=== PATIENT | male | born 1975 | race Caucasian/White ===

== ENCOUNTER 2016-09-09 15:59 | Emergency (ER) | payer OTHER ==
[2016-09-09 16:05] VITALS: BP 130/79; PULSE 70; TEMP 98.3; BMI 26.4
[2016-09-09] MEDS ORDERED: CYCLOBENZAPRINE HCL 10 MG TABLET (FP) PO ONE (16:35)
[2016-09-09] MEDS ORDERED: KETOROLAC TROMETHAMINE 60 MG/2 ML VIAL IM ONE (16:35)
--- NOTE | 2016-09-09 16:40 | PDOC ---
History of Present Illness - General Chief Complaint: Pain Stated Complaint: BACK PAIN Time Seen by Provider: 09/09/16 16:07 History Source: Patient Exam Limitations: No Limitations - History of Present Illness Initial Comments: 09/09/16 16:35 41-year-old male with complaints of low back pain since yesterday. Patient states was fishing and did not do anything exertional and by the evening he had discomfort to the point that he took 600 mg Motrin with minimal affect. Patient has no complaints of sensory changes, saddle anesthesia, incontinence, history of back pain, or difficulty ambulating. Occurred: reports: yesterday Severity: reports: moderate Pain Location: reports: back Method of Injury: Yes: unknown Modifying Factors: improves with: None Associated Symptoms (Fall): denies symptoms Past History - Past Medical History Allergies/Adverse Reactions: Allergies Allergy/AdvReac Type Severity Reaction Status Date / Time No Known Allergies Allergy Verified 09/09/16 16:02 Home Medications: Ambulatory Orders NK [No Known Home Medication] 09/09/16 Other medical history: NONE - Psycho/Social/Smoking Cessation Hx Anxiety: No Suicidal Ideation: No Smoking History: Never smoked Have you smoked in the past 12 months: No Information on smoking cessation initiated: No Hx Alcohol Use: No Drug/Substance Use Hx: No Patient Lives Alone: No Review of Systems - Review of Systems Able to Perform ROS?: Yes Constitutional: No: Symptoms Reported ABD/GI: No: Symptoms Reported : No: Flank Pain Musculoskeletal: Yes: Back Pain, Muscle Pain. No: Joint Pain, Neck Pain Integumentary: No: Bruising Neurological: No: Numbness, Paresthesia, Weakness Hematologic/Lymphatic: No: Symptoms Reported *Physical Exam - Vital Signs Last Vital Signs Temp Pulse Resp BP Pulse Ox 98.3 F 70 18 130/79 100 09/09/16 16:02 09/09/16 16:02 09/09/16 16:02 09/09/16 16:02 09/09/16 16:02 - Physical Exam General Appearance: Yes: Nourished, Appropriately Dressed. No: Apparent Distress Musculoskeletal: negative: CVA Tenderness, Decreased Range of Motion, Muscle Spasm, Vertebral Tenderness (no midline tenderness) Extremity: positive: Normal Range of Motion Integumentary: positive: Normal Color, Warm, Moist Neurologic: positive: Motor Strength 5/5 (ambulatory) Medical Decision Making - Medical Decision Making 09/09/16 16:38 Patient with complaints of back pain since yesterday without identifying trigger. Patient was fishing but denies anything anything heavy. Patient exam had no midline tenderness but did have paraspinous tenderness at L3 -L5 bilaterally. Patient with likely low back strain. Patient ordered for Toradol and Flexeril. Will discharge home with Motrin and Flexeril *DC/Admit/Observation/Transfer Diagnosis at time of Disposition: Strain of lumbar region Qualifiers: Encounter type: initial encounter Qualified Code(s): S39.012A - Strain of muscle, fascia and tendon of lower back, initial encounter - Discharge Dispostion Disposition: HOME Condition at time of disposition: Good - Referrals Referrals: Pham Lyman MD [Primary Care Provider] - - Patient Instructions Printed Discharge Instructions: DI for Low Back Pain Additional Instructions: I recommend applying ice to the affected area for the next 3 days. Please take medication as prescribed. Avoid movements that Trigger discomfort. Follow-up with your PMD as needed. Otherwise return to ED if symptoms worsen
[2016-09-09] MEDS ORDERED: CYCLOBENZAPRINE HCL 10 MG TABLET (FP) ONE (16:41)
[2016-09-09] MEDS ORDERED: KETOROLAC TROMETHAMINE 60 MG/2 ML VIAL ONE (16:41)
== END 2016-09-09 16:50 | disposition home or self-care (01) ==
LOC: JERFT 15:59 → JER 15:59 → JERFT 16:50
PROC: 3E0233Z Introduction of Anti-inflammatory into Muscle, Percutaneous Approach (ICD-10-PCS; principal; 2016-09-09)
DX: S39.012A Strain of muscle, fascia and tendon of lower back, initial encounter (principal); X58.XXXA Exposure to other specified factors, initial encounter; Y93.9 Activity, unspecified; Y92.9 Unspecified place or not applicable
CPT/HCPCS: 96372; 99281-25

== ENCOUNTER 2017-02-20 09:21 | Day surgery (SDC) | payer OTHER ==
[2017-02-19 16:56] VITALS: BMI 25.7
[2017-02-20] MEDS ORDERED: DEXAMETHASONE SOD PHOSPHATE/PF 10 MG/ML SDV ONE (12:52)
[2017-02-20] MEDS ORDERED: ROPIVACAINE HCL 0.5% 30ML VIAL ONE (12:53)
[2017-02-20] MEDS ORDERED: MIDAZOLAM HCL 2 MG/2 ML SINGLE DOSE VIAL ONE ×3 (12:53→13:04)
[2017-02-20] MEDS ORDERED: ONDANSETRON 4 MG/2 ML VIAL ONE ×2 (13:03→15:58)
[2017-02-20] MEDS ORDERED: PROPOFOL 20 ML ONE ×3 (13:03→14:26)
[2017-02-20] MEDS ORDERED: DEXAMETHASONE SOD PHOSPHATE 4 MG/1 ML VIAL ONE (13:03)
[2017-02-20] MEDS: ONDANSETRON 4 MG/2 ML VIAL IVPUSH ONE ×2 (16:00→17:45)
[2017-02-20] MEDS ORDERED: oxyCODONE HCL 5 MG TABLET PO PRN (16:04)
[2017-02-20 19:06] VITALS: BP 132/79; PULSE 86; TEMP 98
--- NOTE | 2017-02-22 08:44 | OP ---
DATE OF OPERATION: 02/20/2017 PREOPERATIVE DIAGNOSES: 1. Right shoulder acromioclavicular joint arthritis. 2. Right shoulder subacromial impingement syndrome. POSTOPERATIVE DIAGNOSES: 1. Right shoulder acromioclavicular joint arthritis. 2. Right shoulder subacromial impingement syndrome. OPERATIVE PROCEDURES: 1. Right shoulder arthroscopic distal clavicle excision. 2. Right shoulder arthroscopic subacromial decompression. JOURNEYMAN MOLDER: LULU Cota SURGEON: Amie Johnson MD ANESTHESIA: Regional. COMPLICATIONS: None. ESTIMATED BLOOD LOSS: Minimal. INDICATIONS FOR PROCEDURE: The patient is a 41-year-old male with the above findings, indicated for operative treatment. The risks, benefits, and alternatives were discussed with the patient at length, and proper informed consent was obtained. DESCRIPTION OF PROCEDURE: After proper identification of the patient and the correct operative site, patient was brought to the operating room, placed supine on the operating table with prominences well padded. Patient was placed in the beach-chair position with all points of contact well padded. An in-line cervical position was maintained throughout the procedure. Right upper extremity was prepped and draped in the usual sterile fashion. Arthroscopy was performed through the posterior, lateral, and anterior portals. Incision was taken sharply through the skin with blunt dissection through the subcutaneous tissues. Blunt entry to the joint was performed in each case. Glenohumeral joint was observed and found to be free of chondral defects. Mild fraying of the labrum was noted and this was debrided with the mechanical shaver. There were no loose bodies. Ligaments were intact. The rotator cuff was clear. The supraspinatus, infraspinatus, and subscapularis were intact. Arthroscope was then introduced into the subacromial space, where a severe bursitis was noted. This was debrided with the mechanical shaver. Anterior-inferior subacromial spur was noted, and this was shaved with an anterior-inferior acromioplasty using an arthroscopic grisel. AC joint was found to be arthritic, and a distal clavicle excision was performed. Shoulder was taken through a range of motion, and there was no impingement of the AC joint anymore. Wounds were irrigated with saline and repaired with 5-0 nylon sutures. Sterile dressings were applied. Sling was placed. The patient was reversed from anesthesia and brought to the recovery room in stable condition. Jung Guajardo, the hotel administrative assistant, was integral throughout the procedure. Procedure could not have been performed without a skilled operative hotel administrative assistant. AMIE JOHNSON M.D. [id number]
== END 2017-02-20 19:01 | disposition home or self-care (01) ==
LOC: FASU 09:21
PROVIDERS: ATTEND Orthopaedic Surgery Hand Surgery
PROC: 0PB94ZZ Excision of Right Clavicle, Percutaneous Endoscopic Approach (ICD-10-PCS; principal; 2017-02-20 14:20)
PROC: 0RNJ4ZZ Release Right Shoulder Joint, Percutaneous Endoscopic Approach (ICD-10-PCS; 2017-02-20 14:20)
DX: M13.811 Other specified arthritis, right shoulder (principal); M75.41 Impingement syndrome of right shoulder
CPT/HCPCS: 94760

== ENCOUNTER 2017-07-28 16:17 | Emergency (ER) | payer OTHER ==
[2017-07-28 16:23] VITALS: BP 115/83; PULSE 77; TEMP 98.3; BMI 28.0
[2017-07-28] MEDS ORDERED: KETOROLAC TROMETHAMINE 60 MG/2 ML VIAL IM ONE (16:46)
[2017-07-28] MEDS ORDERED: DEXAMETHASONE SOD PHOSPHATE 10 MG/1 ML VIAL IM ONE (16:46)
[2017-07-28] MEDS ORDERED: DEXAMETHASONE SOD PHOSPHATE 10 MG/1 ML VIAL ONE (16:50)
[2017-07-28] MEDS ORDERED: KETOROLAC TROMETHAMINE 60 MG/2 ML VIAL ONE (16:50)
--- NOTE | 2017-07-28 16:50 | PDOC ---
History of Present Illness - General History Source: Patient Exam Limitations: No Limitations - History of Present Illness Initial Comments: 07/28/17 16:51 The patient is a 42 year old male with a past medical history of lumbar disc herniation who presents to the ED with 3 weeks of lower back pain. The patient reports intermittent pain to the top of his left sided buttock, radiating down his left leg. He reports taking NSAIDS with no relief of present symptoms. Patient states he sits for long hours at his job and does a lot of heavy lifting. Denies recent trauma. Denies fecal or urinary incontinence. Denies focal numbness/weakness/or tingling. Denies foot drop. Denies nausea, vomiting, or diarrhea. Denies chest pain or shortness of breath. Denies any other symptoms. <Ryanne Castanon - Last Filed: 07/28/17 16:51> <Kyara Rosas - Last Filed: 07/28/17 17:11> - General Chief Complaint: Back Pain Stated Complaint: BACK PAIN Time Seen by Provider: 07/28/17 16:26 Past History <Ryanne Castanon - Last Filed: 07/28/17 16:51> - Past Medical History Anemia: No Asthma: No Cancer: No Cardiac Disorders: No CVA: No COPD: No CHF: No Dementia: No Diabetes: No GI Disorders: No Disorders: No HTN: No Hypercholesterolemia: No Liver Disease: No Seizures: No Thyroid Disease: No - Surgical History Abdominal Surgery: No Appendectomy: Yes Cardiac Surgery: No Cholecystectomy: No Lung Surgery: No Neurologic Surgery: No Orthopedic Surgery: Yes (LUMBAR MICRODISCECTOMY 2007) - Immunization History Immunization Up to Date: Yes - Suicide/Smoking/Psychosocial Hx Smoking History: Never smoked Have you smoked in the past 12 months: No If you are a former smoker, when did you quit?: 10 YEARS AGO Information on smoking cessation initiated: No Hx Alcohol Use: No Drug/Substance Use Hx: No Substance Use Type: None <Kyara Rosas - Last Filed: 07/28/17 17:11> - Past Medical History Allergies/Adverse Reactions: Allergies Allergy/AdvReac Type Severity Reaction Status Date / Time No Known Allergies Allergy Verified 07/28/17 16:20 Home Medications: Ambulatory Orders Cyclobenzaprine HCl [Flexeril 10 mg] 10 mg PO TID PRN 07/28/17 Docusate Sodium [Colace -] 100 mg PO DAILY PRN #30 capsule 07/28/17 Ibuprofen [Motrin -] 600 mg PO QID PRN #28 tablet 07/28/17 Naproxen [Naprosyn -] 500 mg PO BID 07/28/17 Oxycodone HCl/Acetaminophen [Percocet 5-325 mg Tablet] 1 tab PO Q6H PRN #20 tablet MDD 4 07/28/17 Review of Systems - Review of Systems Able to Perform ROS?: Yes Comments:: 07/28/17 16:51 CONSTITUTIONAL: Absent: fever, no chills, no fatigue EYES: Absent: visual changes ENT: Absent: ear pain, no sore throat CARDIOVASCULAR: Absent: chest pain, no palpitations RESPIRATORY: Absent: cough, no SOB GI: Absent: abdominal pain, no nausea, no vomiting, no constipation, no diarrhea GENITOURINARY: Absent: dysuria, no frequency, no hematuria MUSKULOSKELETAL: + back pain Absent: no arthralgia, no myalgia SKIN: Absent: rash NEURO: Absent: headache All Other Systems: Reviewed and Negative <Ryanne Castanon - Last Filed: 07/28/17 16:51> *Physical Exam - Vital Signs Last Vital Signs Temp Pulse Resp BP Pulse Ox 98.3 F 77 17 115/83 100 07/28/17 16:20 07/28/17 16:20 07/28/17 16:20 07/28/17 16:20 07/28/17 16:20 - Physical Exam Comments: 07/28/17 16:52 GENERAL: Well-appearing, well-nourished. No apparent distress. HEENT: Normocephalic, atraumatic. PERRL, EOM intact. CARDIOVASCULAR: Normal S1, S2. Regular rate and rhythm. PULMONARY: Clear to auscultation bilaterally. ABDOMEN: Soft, non-distended, non-tender. EXTREMITIES: + sitting, down the back of left leg is throbbing Normal ROM in all four extremities. No gross deformities. SKIN: Warm, dry. No rash NEUROLOGICAL: No focal neurological deficits. Normal speech. <Ryanne Castanon - Last Filed: 07/28/17 16:51> - Vital Signs Last Vital Signs Temp Pulse Resp BP Pulse Ox 98.3 F 77 17 115/83 100 07/28/17 16:20 07/28/17 16:20 07/28/17 16:20 07/28/17 16:20 07/28/17 16:20 <Kyara Rosas - Last Filed: 07/28/17 17:11> *DC/Admit/Observation/Transfer - Attestations Scribe Attestion: 07/28/17 16:52 Documentation prepared by Ryanne Castanon, acting as biomedical engineering supervisor for Kyara Rosas MD <Ryanne Castanon - Last Filed: 07/28/17 16:51> <Kyara Rosas - Last Filed: 07/28/17 17:11> Diagnosis at time of Disposition: Back pain Qualifiers: Back pain location: low back pain Chronicity: unspecified Back pain laterality : left Sciatica presence: with sciatica Sciatica laterality: sciatica of left side Qualified Code(s): M54.42 - Lumbago with sciatica, left side - Discharge Dispostion Disposition: HOME Condition at time of disposition: Stable - Prescriptions Prescriptions: Docusate Sodium [Colace -] 100 mg PO DAILY PRN #30 capsule PRN Reason: Constipation Ibuprofen [Motrin -] 600 mg PO QID PRN #28 tablet PRN Reason: Back Pain Oxycodone HCl/Acetaminophen [Percocet 5-325 mg Tablet] 1 tab PO Q6H PRN #20 tablet MDD 4 PRN Reason: Pain Level 7 - 10 - Referrals Referrals: Pham Lyman MD [Primary Care Provider] - - Patient Instructions Printed Discharge Instructions: DI for Back Pain With Sciatica Additional Instructions: PLEASE FOLLOW UP WITH YOUR ORTHOPEDIST [facility] OR WORK DISPATCHER YOUR MEDICATIONS AT YOUR PHARMACY
== END 2017-07-28 17:18 | disposition home or self-care (01) ==
LOC: JER 16:17
PROC: 3E0233Z Introduction of Anti-inflammatory into Muscle, Percutaneous Approach (ICD-10-PCS; principal; 2017-07-28)
PROC: 3E0233Z Introduction of Anti-inflammatory into Muscle, Percutaneous Approach (ICD-10-PCS; 2017-07-28)
DX: M54.42 Lumbago with sciatica, left side (principal)
CPT/HCPCS: 96372; 99281-25; J1100

== ENCOUNTER 2019-01-18 19:21 | Emergency (ER) | payer OTHER ==
[2019-01-18 19:47] VITALS: TEMP 98.6; BMI 24.4
[2019-01-18] MEDS ORDERED: morphine CARPU-JECT 4 MG/1 ML DISP.SYRIN IVPUSH ONE (20:09)
[2019-01-18] MEDS ORDERED: morphine SULFATE 4 MG/ML VIAL ONE (20:10)
[2019-01-18] MEDS ORDERED: KETOROLAC TROMETHAMINE 30 MG/1 ML VIAL IVPUSH ONE (20:21)
[2019-01-18] MEDS ORDERED: LIDOCAINE 5% TOPICAL PATCH TP ONE (20:22)
[2019-01-18] MEDS ORDERED: METHOCARBAMOL 500 MG TABLET PO ONE (20:23)
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
[2019-01-18] MEDS ORDERED: METHOCARBAMOL 500 MG TABLET ONE (20:45)
[2019-01-18] MEDS ORDERED: LIDOCAINE 5% TOPICAL PATCH ONE (20:45)
[2019-01-18] MEDS ORDERED: KETOROLAC TROMETHAMINE 30 MG/1 ML VIAL ONE (20:46)
[2019-01-18] MEDS ORDERED: ONDANSETRON 4 MG/2 ML VIAL ONE (20:50)
[2019-01-18] MEDS ORDERED: ONDANSETRON 4 MG/2 ML VIAL IVPB ONE (20:51)
[2019-01-18 21:19] LABS: BASO % 0.6 % (0-2.0); EOS % 2.6 % (0-4.5); HEMATOCRIT 42.3 % (35.4-49); HEMOGLOBIN 14.3 GM/dL (11.7-16.9); LYMPH % 37.7 % (8-40); MCH 30.5 pg (25.7-33.7); MCHC 33.7 g/dl (32.0-35.9); MEAN CELL VOLUME 90.3 fl (80-96); MEAN PLT VOLUME 9.3 fl (7.5-11.1); MONO % 7.9 % (3.8-10.2); NEUT % 51.2 % (42.8-82.8); PLATELET COUNT 233 K/MM3 (134-434); RBC 4.68 M/mm3 (4.00-5.60); RDW 13.3 % (11.9-15.9); WHITE BLOOD COUNT 5.9 K/mm3 (4.0-10.0)
[2019-01-18 21:31] LABS: INR 1.04 (0.83-1.09); PROTHROMBIN TIME (PATIENT) 12.3 SEC (9.7-13.0)
[2019-01-18 21:33] LABS: ACTIVATED PTT 35.5 SECONDS (25.2-36.5)
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
[2019-01-18 21:46] LABS: ALBUMIN 4.9 g/dl (3.4-5.0); BILIRUBIN,TOTAL 1.2 mg/dL (0.2-1); BLOOD UREA NITROGEN 22.7 mg/dL (7-18); CALCIUM 9.3 mg/dL (8.5-10.1); POTASSIUM 3.7 mmol/L (3.5-5.1); TOT PROT 8.3 g/dl (6.4-8.2)
[2019-01-18] MEDS ORDERED: LIDOCAINE PATCH REMOVAL MC SCH (22:00)
[2019-01-18 23:11] VITALS: BP 138/68; PULSE 98
== END 2019-01-18 23:11 | disposition home or self-care (01) ==
LOC: JER 19:21
PROC: 3E033GC Introduction of Other Therapeutic Substance into Peripheral Vein, Percutaneous Approach (ICD-10-PCS; principal; 2019-01-18)
PROC: 3E033NZ Introduction of Analgesics, Hypnotics, Sedatives into Peripheral Vein, Percutaneous Approach (ICD-10-PCS; 2019-01-18)
PROC: 3E0333Z Introduction of Anti-inflammatory into Peripheral Vein, Percutaneous Approach (ICD-10-PCS; 2019-01-18)
DX: S39.012A Strain of muscle, fascia and tendon of lower back, initial encounter (principal); V43.52XA Car driver injured in collision with other type car in traffic accident, initial encounter; Y92.414 Local residential or business street as the place of occurrence of the external cause; Y93.89 Activity, other specified; Y99.8 Other external cause status
CPT/HCPCS: 36415; 70450-TC; 72125-TC; 72131-TC; 80053; 85025; 85610; 85730; 86850; 86900; 86901; 99284-25

== ENCOUNTER 2019-04-28 21:36 | Emergency (ER) | payer OTHER ==
[2019-04-28 21:53] VITALS: BP 125/89; PULSE 97; TEMP 98.7; BMI 24.4
[2019-04-28] MEDS ORDERED: LIDOCAINE HCL 2% JELLY 10 ML CARTRIDGE ONE (21:55)
--- NOTE | 2019-04-28 22:38 | PDOC ---
Documentation entered by Chika Kern SCRIBE, acting as scribe for Kyara Rosas MD. Kyara Rosas MD: This documentation has been prepared by the Concha hernández Xhesika, SCRIBE, under my direction and personally reviewed by me in its entirety. I confirm that the documentation accurately reflects all work, treatment, procedures, and medical decision making performed by me. History of Present Illness - General Chief Complaint: Urinary Problem Stated Complaint: UNABLE TO URINATE Time Seen by Provider: 04/28/19 22:04 History Source: Patient Exam Limitations: No Limitations - History of Present Illness Initial Comments: 04/28/19 22:16 The patient is a 43 year old male with no significant PMH of who presents to the emergency department for urinary retention. Pt states he had a laminectomy L5-S1 done today (04/28/2019) at [facility], came home and shortly after had difficulty urinating. Pt states he called his surgeon who referred patient to see a urologist and prescribed him medication. The patient denies new numbness/ tingling, chest pain, shortness of breath, headache and dizziness. Denies fever, chills, cough, nausea, vomiting. Allergies: NKDA Past surgical history: Appendectomy, laminectomy L5-S1 Past History - Past Medical History Allergies/Adverse Reactions: Allergies Allergy/AdvReac Type Severity Reaction Status Date / Time No Known Allergies Allergy Verified 04/28/19 21:49 Home Medications: Ambulatory Orders Ibuprofen [Motrin -] 600 mg PO TID #90 tablet 01/18/19 Methocarbamol [Robaxin -] 500 mg PO TID #90 tablet 01/18/19 Quetiapine Fumarate [Seroquel] 300 mg PO DAILY 01/18/19 Anemia: No Asthma: No Cancer: No Cardiac Disorders: No CVA: No COPD: No CHF: No Dementia: No Diabetes: No GI Disorders: No Disorders: No HTN: No Hypercholesterolemia: No Liver Disease: No Seizures: No Thyroid Disease: No - Surgical History Abdominal Surgery: No Appendectomy: Yes Cardiac Surgery: No Cholecystectomy: No Lung Surgery: No Neurologic Surgery: No Orthopedic Surgery: Yes (LUMBAR MICRODISCECTOMY 2007) - Immunization History Immunization Up to Date: Yes - Psycho Social/Smoking Cessation Hx Smoking History: Never smoked Have you smoked in the past 12 months: No If you are a former smoker, when did you quit?: 10 YEARS AGO Hx Alcohol Use: No Drug/Substance Use Hx: No Substance Use Type: None Review of Systems - Review of Systems Able to Perform ROS?: Yes Comments:: 04/28/19 22:19 GENERAL/CONSTITUTIONAL: No fever or chills. No weakness. HEAD, EYES, EARS, NOSE AND THROAT: No change in vision. No ear pain or discharge. No sore throat. CARDIOVASCULAR: No chest pain or shortness of breath. RESPIRATORY: No cough, wheezing, or hemoptysis. GASTROINTESTINAL: No nausea, vomiting, diarrhea or constipation. GENITOURINARY: +urinary retention. MUSCULOSKELETAL: No joint or muscle swelling or pain. No neck or back pain. SKIN: No rash NEUROLOGIC: No headache, vertigo, loss of consciousness, or change in strength/ sensation. ENDOCRINE: No increased thirst. No abnormal weight change. HEMATOLOGIC/LYMPHATIC: No anemia, easy bleeding, or history of blood clots. ALLERGIC/IMMUNOLOGIC: No hives or skin allergy. *Physical Exam - Vital Signs Last Vital Signs Temp Pulse Resp BP Pulse Ox 98.7 F 97 H 18 125/89 100 04/28/19 21:50 04/28/19 21:50 04/28/19 21:50 04/28/19 21:50 04/28/19 21:50 - Physical Exam 04/28/19 22:19 GENERAL: Awake, alert, and fully oriented, in no acute distress HEAD: No signs of trauma NECK: Normal ROM, supple, no lymphadenopathy, JVD, or masses LUNGS: Breath sounds equal, clear to auscultation bilaterally. No wheezes, and no crackles HEART: Regular rate and rhythm, normal S1 and S2, no murmurs, rubs or gallops ABDOMEN: Soft, nontender, normoactive bowel sounds. No guarding, no rebound. No masses BACK: + L5-S1 laminectomy incision : +Bellamy in place EXTREMITIES: Normal range of motion, no edema. No clubbing or cyanosis. No cords, erythema, or tenderness NEUROLOGICAL: Cranial nerves II through XII grossly intact. Normal speech, normal gait SKIN: Warm, Dry, normal turgor, no rashes or lesions noted. Medical Decision Making - Medical Decision Making 04/28/19 22:34 43-year-old male who had laminectomy L5-S1 today presents with some difficulty urinating. He is ambulating with ease, no saddle anesthesia, motor strength equal bilaterally. He states he actually left prior to formal discharge and has since spoken to his surgeon Mia put in that showed some urinary retention The plan is for him to be discharged with a leg bag and to be seen by his specialist tomorrow morning 04/28/19 22:35 Discharge - Discharge Information Problems reviewed: Yes Clinical Impression/Diagnosis: Postoperative urinary retention Condition: Fair - Admission No - Follow up/Referral Referrals: Pham Lyman MD [Primary Care Provider] - - Patient Discharge Instructions Patient Printed Discharge Instructions: DI for Urinary Retention in Men Additional Instructions: It is very important to touch base with your surgeon in the morning if you have any further problems Return to the emergency department for any numbness or tingling, increasing pain, bladder or bowel incontinence - Post Discharge Activity
[2019-04-28] MEDS ORDERED: TAMSULOSIN HCL 0.4 MG CAP PO ONE (22:40)
[2019-04-28] MEDS ORDERED: TAMSULOSIN HCL 0.4 MG CAP ONE (22:42)
== END 2019-04-28 22:52 | disposition home or self-care (01) ==
LOC: JER 21:36
PROC: 0T9B70Z Drainage of Bladder with Drainage Device, Via Natural or Artificial Opening (ICD-10-PCS; principal; 2019-04-28)
DX: N99.89 Other postprocedural complications and disorders of genitourinary system (principal); R33.8 Other retention of urine
CPT/HCPCS: 99282-25

== ENCOUNTER 2022-12-11 05:18 | Day surgery (SDC) | payer OTHER ==
[~2022-12-11 05:18] MED LIST: BUPIVACAINE HCL/PF 0.75% 10 ML VIAL NR ONE; LIDOCAINE HCL 1% PRESERVATIVE FREE - 30ML VIAL IJ ONE
[2022-12-11 09:21] VITALS: BMI 24.4
[2022-12-11 09:23] VITALS: RESP 18
[2022-12-11 10:46] VITALS: TEMP 97.5
[2022-12-11 11:02] VITALS: BP 119/71; PULSE 73
== END 2022-12-11 11:00 | disposition home or self-care (01) ==
LOC: JASU-SURG 05:18
PROVIDERS: ATTEND Pain Medicine Pain Medicine
PROC: 3E0T33Z Introduction of Anti-inflammatory into Peripheral Nerves and Plexi, Percutaneous Approach (ICD-10-PCS; 2022-12-11)
PROC: BR16YZZ Fluoroscopy of Lumbar Facet Joint(s) using Other Contrast (ICD-10-PCS; 2022-12-11)
PROC: 3E0T3BZ Introduction of Anesthetic Agent into Peripheral Nerves and Plexi, Percutaneous Approach (ICD-10-PCS; principal; 2022-12-11 10:45)
DX: M47.816 Spondylosis without myelopathy or radiculopathy, lumbar region (principal)
CPT/HCPCS: 76000-TC-FY

== ENCOUNTER 2023-01-25 04:38 | Day surgery (SDC) | payer OTHER ==
[2023-01-24 08:49] VITALS: BMI 24.5
[2023-01-25 07:23] VITALS: RESP 20
[2023-01-25] MEDS ORDERED: LIDOCAINE HCL/PF 1% SDV 5ML VIAL ONE (07:29)
[2023-01-25] MEDS ORDERED: BUPIVACAINE HCL/PF 0.75% 10 ML VIAL ONE (07:29)
[2023-01-25] MEDS ORDERED: LIDOCAINE HCL 1%, 10 MG/ML (20ML VIAL) NR ONE (08:13)
[2023-01-25] MEDS ORDERED: BUPIVACAINE HCL/PF 0.75% 10 ML VIAL NR ONE (08:14)
[2023-01-25] MEDS ORDERED: ACETAMINOPHEN 500 MG TABLET (FP) ONE (08:33)
[2023-01-25] MEDS ORDERED: ACETAMINOPHEN 500 MG TABLET (FP) PO ONE (08:40)
[2023-01-25 08:42] VITALS: BP 115/60; PULSE 84; TEMP 97.7
[2023-01-25] MEDS ORDERED: ACETAMINOPHEN 500 MG TABLET (FP) PO PRN (12:30)
== END 2023-01-25 09:24 | disposition home or self-care (01) ==
LOC: JASU-SURG 04:38
PROVIDERS: ATTEND Pain Medicine Pain Medicine
PROC: 3E0T3BZ Introduction of Anesthetic Agent into Peripheral Nerves and Plexi, Percutaneous Approach (ICD-10-PCS; principal; 2023-01-25 08:00)
DX: M47.816 Spondylosis without myelopathy or radiculopathy, lumbar region (principal)
CPT/HCPCS: 76000-TC-FY

== ENCOUNTER → 2023-02-26 | Day surgery (SDC) | payer OTHER ==
[2023-02-18 14:50] VITALS: BMI 24.5
[~2023-02-26] MED LIST changes: +ACETAMINOPHEN 500 MG TABLET (FP) PO PRN; -BUPIVACAINE HCL/PF 0.75% 10 ML VIAL NR ONE; +BUPIVACAINE HCL/PF 0.75% 10 ML VIAL ONE; +DEXAMETHASONE SOD PHOSPHATE 10 MG/1 ML VIAL ONE; -LIDOCAINE HCL 1% PRESERVATIVE FREE - 30ML VIAL IJ ONE; +LIDOCAINE HCL/PF 1% SDV 5ML VIAL ONE; +LIDOCAINE HCL/PF 2% SDV 5ML VIAL ONE
== END | disposition home or self-care (01) ==
LOC: JASU-SURG 05:08
PROVIDERS: ATTEND Pain Medicine Pain Medicine
DX: Z53.8 Procedure and treatment not carried out for other reasons (principal)
CPT/HCPCS: J1100